=== PATIENT | female | born 1980 | race Caucasian/White ===

== ENCOUNTER 2019-08-24 04:16 | Observation (INO) | payer SELFPAY ==
--- NOTE | 2019-08-24 09:09 | ER Document Report ---
ED Extremity Problem, Lower - General Chief Complaint: Leg Pain Stated Complaint: LEG PAIN Time Seen by Provider: 08/24/19 08:46 Notes: Patient is a 39-year-old female who presents to the emergency department with chief complaint of bilateral leg swelling. Patient reports 4 days ago she developed bilateral leg swelling. Patient reports she does get swelling in both her legs prior to starting her period but has never been this significant. Patient reports significant leg pain. Patient denies redness or open wounds to her legs. Patient reports over the past 4 days she has been drinking a half a quart of moonshine daily. Patient reports she has been drinking this much due to the pain. Patient reports she does smoke cigarettes but does not do any recreational drug use or IV drug use. Patient denies fever, shortness of breath, chest pain. Patient reports she does take Suboxone due to addiction to opiates after receiving gastric bypass. Patient reports she has been out of her Suboxone for 4 days. Patient reports she has been taking ibuprofen for her discomfort which is not helping. Patient reports she is not supposed to take ibuprofen due to her gastric bypass. Patient reports she did take a 14-hour car ride 3 weeks ago as she came down here to help a family member move. Patient reports the swelling did not start until 4 days ago. TRAVEL OUTSIDE OF THE [place] IN LAST 30 DAYS: No - Related Data Allergies/Adverse Reactions: sulfamethoxazole [From Bactrim] Allergy (Verified 08/24/19 08:54) trimethoprim [From Bactrim] Allergy (Verified 08/24/19 08:54) Past Medical History - General Information source: Patient - Social History Smoking Status: Never Smoker Frequency of alcohol use: Heavy Drug Abuse: None Lives with: Spouse/Significant other Family History: None Patient has suicidal ideation: No Patient has homicidal ideation: No - Past Medical History Cardiac Medical History: Reports: None Pulmonary Medical History: Reports: None EENT Medical History: Reports: None Neurological Medical History: Reports: None Endocrine Medical History: Reports: None Renal/ Medical History: Reports: None Malignancy Medical History: Reports: None GI Medical History: Reports: Hx Gastritis, Hx Gastroesophageal Reflux Disease Musculoskeletal Medical History: Reports None Skin Medical History: Reports None Psychiatric Medical History: Reports: None Traumatic Medical History: Reports: None Infectious Medical History: Reports: None Past Surgical History: Reports: Hx Abdominal Surgery - gastric bypas Physical Exam - Vital signs Vitals: Temp Pulse Resp BP Pulse Ox 97.9 F 95 16 100/58 L 100 08/24/19 04:34 08/24/19 04:34 08/24/19 04:34 08/24/19 04:34 08/24/19 04:34 Interpretation: Normal - Notes Notes: GENERAL: Well-appearing, well-nourished and in no acute distress. HEAD: Atraumatic, normocephalic. EYES: Pupils equal round and reactive to light, extraocular movements intact, sclera anicteric, conjunctiva are normal. ENT: Nares patent, oropharynx clear without exudates. Moist mucous membranes. NECK: Normal range of motion, supple without lymphadenopathy or JVD. LUNGS: Breath sounds clear to auscultation bilaterally and equal. No wheezes rales or rhonchi. HEART: Regular rate and rhythm without murmurs, rubs or gallops. ABDOMEN: Soft, nontender, normoactive bowel sounds. No guarding, no rebound. No masses appreciated. BACK: No cervical, thoracic, lumbar midline tenderness. No saddle anesthesia, normal distal neurovascular exam. GENITOURINARY: Deferred. EXTREMITIES: Normal range of motion, + non pitting edema to bilateral lower extremities, there is no erythema, unilateral leg swelling, ecchymosis, rash NEUROLOGICAL: Cranial nerves II through XII grossly intact. Normal speech, normal gait. PSYCH: Normal mood, normal affect. SKIN: Warm, Dry, normal turgor, no rashes or lesions noted. Course - Re-evaluation Re-evalutation: 08/24/19 11:53 Upon reevaluation patient is resting comfortably on stretcher. Patient continues to complaint of severe bilateral leg pain. Patient's EKG just shows a sinus rhythm with a prolonged QT interval of 565. I have added on a magnesium level as well will give patient potassium as it was low at 2.9. Plan is to admit patient to the hospitalist service to the to the prolonged QT. I did make the patient aware of this. Patient verbalizes understanding and is in agreement to stay in the hospital. 08/24/19 12:03 Dr. Garcia with the hospital service to admit. - Vital Signs Vital signs: Temp Pulse Resp BP Pulse Ox 97.9 F 95 16 100/58 L 100 08/24/19 04:34 08/24/19 04:34 08/24/19 04:34 08/24/19 04:34 08/24/19 04:34 - Laboratory Result Diagrams: 08/24/19 10:00 08/24/19 10:00 Laboratory results interpreted by me: 08/24/19 08/24/19 08/24/19 10:00 10:00 10:45 WBC 3.7 L RDW 19.8 H Plt Count 139 L Lymph % (Auto) 50.0 H Absolute Neuts (auto) 1.4 L Seg Neutrophils % 38.1 L Potassium 2.9 L* BUN 5 L Creatinine 0.46 L Calcium 7.8 L AST 158 H Alkaline Phosphatase 289 H Total Protein 5.5 L Albumin 2.9 L Urine Protein 30 H Urine Blood LARGE H Urine Nitrite POSITIVE H Urine Urobilinogen 4.0 H Ur Leukocyte Esterase TRACE H Urine Ascorbic Acid 20 H - Diagnostic Test Radiology reviewed: Reports reviewed Radiology results interpreted by me: 08/24/19 12:28 Chest X-Ray 08/24/19 12:01 IMPRESSION: NO ACUTE RADIOGRAPHIC FINDING IN THE CHEST. - EKG Interpretation by Me Additional EKG results interpreted by me: 08/24/19 12:03 Patient's EKG shows a sinus rhythm with a prolonged QT interval. Patient's rate is 72, ME interval is 144, QT is 516 and QTc is 565. Patient does have a normal axis deviation. There is no ST segment changes in consecutive leads. No ST depression or elevation. Discharge - Discharge Clinical Impression: Hypokalemia, Prolonged QT interval, Lower extremity edema, Leg pain, bilateral Condition: Good Disposition: ADMITTED OBSERVATION Admitting Provider: Jose (Hospitalist) Unit Admitted: [facility]
[2019-08-24] MEDS ORDERED: ACETAMINOPHEN 325 MG TABLET PO ONE (09:11)
[2019-08-24 10:13] LABS: ABSOLUTE EOSINOPHILS # (AUTO) 0.1 10^3/uL (0.0-0.6); ABSOLUTE LYMPHOCYTES (AUTO) 1.9 10^3/uL (0.5-4.7); ABSOLUTE MONOCYTES (AUTO) 0.3 10^3/uL (0.1-1.4); ABSOLUTE NEUT (AUTO) 1.4 10^3/uL (1.7-8.2); BASOPHILS % (AUTO) 0.3 % (0-2); EOSINOPHILS % (AUTO) 2.5 % (0-6); HEMATOCRIT 36.2 % (36.0-47.0); HEMOGLOBIN 12.2 g/dL (12.0-15.5); MEAN CORPUSCULAR HGB CONC 33.7 g/dL (32.0-36.0); MEAN CORPUSCULAR VOLUME 95 fl (80-97); MONOCYTES % (AUTO) 9.1 % (3-13); PLATELET COUNT 139 10^3/uL (150-450); RED BLOOD COUNT 3.82 10^6/uL (3.72-5.28); RED CELL DISTRIBUTION WIDTH 19.8 % (11.5-14.0); SEGMENTED NEUTROPHILS % (AUTO) 38.1 % (42-78); TOTAL CELLS COUNTED % (AUTO) 100 %; WHITE BLOOD COUNT 3.7 10^3/uL (4.0-10.5)
[2019-08-24 10:38] LABS: ALBUMIN 2.9 g/dL (3.5-5.0); ALKALINE PHOSPHATASE 289 U/L (38-126); ANION GAP 8 (5-19); ASPARTATE AMINO TRANSFERASE 158 U/L (14-36); BILIRUBIN,DIRECT 0.2 mg/dL (0.0-0.4); BILIRUBIN,TOTAL 0.8 mg/dL (0.2-1.3); BLOOD UREA NITROGEN 5 mg/dL (7-20); CALCIUM 7.8 mg/dL (8.4-10.2); CARBON DIOXIDE 27 mmol/L (22-30); CHLORIDE 103 mmol/L (98-107); CREATINE KINASE 121 U/L (30-135); GLUCOSE 79 mg/dL (75-110); TOTAL PROTEIN 5.5 g/dL (6.3-8.2)
[2019-08-24 10:45] LABS: POTASSIUM 2.9 mmol/L (3.6-5.0)
[2019-08-24 10:57] LABS: AMORPHOUS SEDIMENT,URINE TRACE /HPF; APPEARANCE,URINE CLOUDY; BILIRUBIN,URINE NEGATIVE (NEGATIVE); COLOR,URINE AMBER; GLUCOSE, URINE NEGATIVE (NEGATIVE); KETONES,URINE NEGATIVE (NEGATIVE); LEUKOCYTE ESTERASE,URINE TRACE (NEGATIVE); NITRITE,URINE POSITIVE (NEGATIVE); PROTEIN,URINE 30 mg/dL (NEGATIVE); URINE SPECIFIC GRAVITY 1.013
[2019-08-24 11:18] LABS: URINE AMPHETAMINES SCREEN NEGATIVE; URINE BARBITURATES SCREEN NEGATIVE; URINE BENZODIAZEPINES SCREEN UNCONFIRMED POSITIVE; URINE COCAINE SCREEN NEGATIVE; URINE MARIJUANA (THC) SCREEN NEGATIVE; URINE METHADONE SCREEN NEGATIVE; URINE PHENCYCLIDINE SCREEN NEGATIVE
[2019-08-24] MEDS ORDERED: POTASSIUM CHLORIDE 10 MEQ CAPSULE.ER PO ONE ×3 (11:54→16:00)
[2019-08-24] MEDS: POTASSI CL 20 MEQ/50 ML RIDER 20 MEQ/50 ML RTUPB IV SCH ×2 (12:10→14:36)
--- NOTE | 2019-08-24 12:27 | RADIOLOGY REPORT (SQ) ---
EXAM DESCRIPTION: CHEST 2 VIEWS COMPLETED DATE/TIME: 08/24/2019 12:17 pm REASON FOR STUDY: bilateral leg edema COMPARISON: None. EXAM PARAMETERS: NUMBER OF VIEWS: two views TECHNIQUE: Digital Frontal and Lateral radiographic views of the chest acquired. RADIATION DOSE: NA LIMITATIONS: none FINDINGS: LUNGS AND PLEURA: No opacities, masses or pneumothorax. No pleural effusion. MEDIASTINUM AND HILAR STRUCTURES: No masses or contour abnormalities. HEART AND VASCULAR STRUCTURES: Heart normal size. No evidence for failure. BONES: No acute findings. HARDWARE: None in the chest. OTHER: No other significant finding. IMPRESSION: NO ACUTE RADIOGRAPHIC FINDING IN THE CHEST. TECHNICAL DOCUMENTATION: JOB ID: [id number] [employer]- All Rights Reserved Reading location - IP/workstation name: [email or web address]
[2019-08-24] MEDS ORDERED: KETOROLAC TROMETHAMINE INJ/PF 30 MG/1 ML SDV IV ONE (12:40)
[2019-08-24] MEDS ORDERED: MORPHINE SULFATE 10 MG/ML INJ IV PRN (13:03)
[2019-08-24] MEDS ORDERED: KETOROLAC TROMETHAMINE INJ/PF 30 MG/1 ML SDV IV PRN (13:04)
[2019-08-24] MEDS ORDERED: PROMETHAZINE HCL INJ 25 MG/1 ML VIAL IV PRN (13:05)
[2019-08-24] MEDS ORDERED: TEMAZEPAM 15 MG CAPSULE PO PRN (13:05)
[2019-08-24] MEDS ORDERED: IPRATROPIUM/ALBUTEROL 0.5-2.5 MG/3 ML AMPUL NEB PRN (13:05)
[2019-08-24] MEDS ORDERED: MAGNESIUM HYDROXIDE SUSP 30 ML UDCUP PO PRN (13:05)
[2019-08-24] MEDS ORDERED: BUPRENORPHINE HCL SL SCH (13:15)
[2019-08-24] MEDS ORDERED: [UNRECOGNIZED DRUG - OTHER] SL SCH (13:15)
[2019-08-24] MEDS ORDERED: NALOXONE HCL SL SCH (13:15)
[2019-08-24] MEDS: OXYCODONE-ACETAMINOPHEN 5-325 MG TABLET PO PRN (13:32)
--- NOTE | 2019-08-24 13:35 | PDOC H&P ---
History of Present Illness Admission Date/PCP: 08/24/19 12:23 History of Present Illness: ANEESH WALKER is a 39 year old female past medical history of morbid obesity status post gastric bypass x13 years, opiate addiction on Suboxone, EtOH and alcohol abuse presenting to ED complaining of bilateral lower extremity pain and swelling. Stating that she gets bilateral swollen legs before her period but never to this extent. She is new to [facility], 3 weeks ago she drove from [place] to [facility]. Bilateral lower extremity pain is started about 4 days ago, and has been drinking EtOH daily to control her pain, cant take ibuprofen because of history of gastic bypase. Ran out of Suboxane 4 days ago. She has been drinking half a quarter of moonshine daily with her male partner who is also on Suboxone. She reports low p.o. intake for the last several days. Denies any of CHF, CKD or liver disease, trauma, recent prolonged hospitalization, recent surgery, shortness of breath, chest pain, palpitation, history of previous DVT, fever, chills, nausea, vomiting, diarrhea, constipation or any urinary symptoms. ED she was found to have severe hypokalemia with QT prolongation on EKG, frequent bilateral lower extremity edema and pain. Hospitalist consulted for admission. Past Medical History Cardiac Medical History: Reports: None Pulmonary Medical History: Reports: None EENT Medical History: Reports: None Neurological Medical History: Reports: None Endocrine Medical History: Reports: None Renal/ Medical History: Reports: None Malignancy Medical History: Reports: None GI Medical History: Reports: Gastroesophageal Reflux Disease Musculoskeltal Medical History: Reports: None Skin Medical History: Reports: None Psychiatric Medical History: Reports: None Traumatic Medical History: Reports: None Infectious Medical History: Reports: None Social History Lives with: Spouse/Significant other Smoking Status: Never Smoker Family History Family History: None Parental Family History Reviewed: Yes Children Family History Reviewed: Yes Sibling(s) Family History Reviewed.: Yes Medication/Allergy Home Medications: Buprenorphine HCl/Naloxone HCl [Suboxone 2 mg-0.5 mg Sublingual Tablet] 1 tab SL BID 08/24/19 Allergies/Adverse Reactions: sulfamethoxazole [From Bactrim] Allergy (Verified 08/24/19 08:54) trimethoprim [From Bactrim] Allergy (Verified 08/24/19 08:54) Review of Systems Review of Systems: as per hpi Physical Exam Vital Signs: Temp Pulse Resp BP Pulse Ox 97.9 F 95 16 100/58 L 100 08/24/19 04:34 08/24/19 04:34 08/24/19 04:34 08/24/19 04:34 08/24/19 04:34 Intake & Output 08/23/19 08/24/19 08/25/19 06:59 06:59 06:59 Weight 61.4 kg General appearance: PRESENT: no acute distress, well-developed, well-nourished Head exam: PRESENT: atraumatic, normocephalic Respiratory exam: PRESENT: clear to auscultation soy. ABSENT: rales, rhonchi, wheezes Cardiovascular exam: PRESENT: RRR. ABSENT: diastolic murmur, rubs, systolic murmur GI/Abdominal exam: PRESENT: normal bowel sounds, soft. ABSENT: distended, guarding, mass, organolmegaly, rebound, tenderness Extremities exam: PRESENT: full ROM, tenderness, +2 edema. ABSENT: calf tende rness, clubbing, pedal edema Neurological exam: PRESENT: alert, awake, oriented to person, oriented to place, oriented to time, oriented to situation, CN II-XII grossly intact. ABSENT: motor sensory deficit Psychiatric exam: PRESENT: anxious Results Laboratory Results: 08/24/19 10:00 08/24/19 10:00 08/24/19 08/24/19 08/24/19 10:00 10:00 10:00 WBC 3.7 L RBC 3.82 Hgb 12.2 Hct 36.2 MCV 95 MCH 32.0 MCHC 33.7 RDW 19.8 H Plt Count 139 L Seg Neutrophils % 38.1 L Sodium 138.1 Potassium 2.9 L* Chloride 103 Carbon Dioxide 27 Anion Gap 8 BUN 5 L Creatinine 0.46 L Est GFR ( Amer) > 60 Glucose 79 Calcium 7.8 L Magnesium 2.2 Total Bilirubin 0.8 AST 158 H Alkaline Phosphatase 289 H Total Protein 5.5 L Albumin 2.9 L Urine Color Urine Appearance Urine pH Ur Specific [place] Urine Protein Urine Glucose (UA) Urine Ketones Urine Blood Urine Nitrite Ur Leukocyte Esterase Urine WBC (Auto) Urine RBC (Auto) 08/24/19 10:45 WBC RBC Hgb Hct MCV MCH MCHC RDW Plt Count Seg Neutrophils % Sodium Potassium Chloride Carbon Dioxide Anion Gap BUN Creatinine Est GFR ( Amer) Glucose Calcium Magnesium Total Bilirubin AST Alkaline Phosphatase Total Protein Albumin Urine Color AMY Urine Appearance CLOUDY Urine pH 5.0 Ur Specific [place] 1.013 Urine Protein 30 H Urine Glucose (UA) NEGATIVE Urine Ketones NEGATIVE Urine Blood LARGE H Urine Nitrite POSITIVE H Ur Leukocyte Esterase TRACE H Urine WBC (Auto) 36 Urine RBC (Auto) 17 08/24/19 08/24/19 10:00 10:00 Creatine Kinase 121 NT-Pro-B Natriuret Pep 58 Impressions: Chest X-Ray 08/24/19 12:01 IMPRESSION: NO ACUTE RADIOGRAPHIC FINDING IN THE CHEST. Assessment and Plan - Diagnosis (1) Hypokalemia Is this a current diagnosis for this admission?: Yes Plan: Likely due to p.o. intake. CK WNL. Anion gap WNL. Admit to IMCU. Hypokalemia protocol. (2) Lower extremity edema Is this a current diagnosis for this admission?: Yes Plan: Drove from [place] to [facility] 3 years ago, took 14 hours of driving. Denies any history of bilateral lower extremity trauma, recent immobilization, recent surgery. Denies any history of CHF, CKD or cirrhosis. proBNP WNL. Denies any shortness of breath, SPO2 WNL on RA. Heart rate WNL. Diuresis guided by volume status. Bilateral lower extremity venous Doppler to rule out DVT. (3) Opiate dependence Is this a current diagnosis for this admission?: Yes Plan: On Suboxone for the last 2 years. As per patient he developed opiate addiction after gastric bypass. Restart home meds. Monitor for withdrawal. Supportive measures. (4) ETOH abuse Is this a current diagnosis for this admission?: Yes Plan: History of binge drinking. Has been using moonshine lately. Admit to telemetry. EtOH withdrawal measures. Folic acid, thiamine, benzos. Monitor for seizures. (5) Tobacco abuse Is this a current diagnosis for this admission?: Yes Plan: Counseled on quitting. NicoDerm patch. (6) UTI (urinary tract infection) Is this a current diagnosis for this admission?: Yes Plan: Likely due to gram-negative processes E. coli. IV ceftriaxone. Avoid quinolones due to QT prolongation.
[2019-08-24] MEDS ORDERED: LEVOFLOXACIN 500 MG/D5W RTU 500 MG/100 ML RTUPB IV SCH (15:00)
[2019-08-24] MEDS: NICOTINE 14 MG/24 HR PATCH.TD24 TD PRN (15:51)
[2019-08-24] MEDS: ENOXAPARIN SODIUM INJ 40 MG/0.4 ML DISP.SYRIN SUBCUT SCH (15:51)
[2019-08-24] MEDS: DIAZEPAM INJ 10 MG/2 ML DISP.SYRIN IV PRN (15:51)
[2019-08-24] MEDS ORDERED: FOLIC ACID/VITAMIN B COMP W-C CAPSULE PO SCH (16:00)
[2019-08-24] MEDS: BUPRENORPHINE HCL 2 MG SUBLINGUAL TABLET SL SCH (16:51)
[2019-08-24] MEDS: PANTOPRAZOLE SODIUM 40 MG TABLET.DR PO SCH (16:51)
[2019-08-24] MEDS: CEFTRIAXONE 1 GM/D5W RTU 1 GM/50 ML RTUPB IV SCH (16:52)
[2019-08-24] MEDS: LORAZEPAM INJ 2 MG/1 ML VIAL IV PRN ×2 (18:33→21:21)
[2019-08-24 18:51] LABS: ANION GAP 7 (5-19); BLOOD UREA NITROGEN 4 mg/dL (7-20); CALCIUM 7.8 mg/dL (8.4-10.2); CARBON DIOXIDE 25 mmol/L (22-30); CHLORIDE 104 mmol/L (98-107); GLUCOSE 88 mg/dL (75-110)
[2019-08-24] MEDS: MORPHINE SULFATE 10 MG/ML INJ IV PRN ×2 (18:58→21:53)
[2019-08-24 19:02] LABS: POTASSIUM 4.5 mmol/L (3.6-5.0)
[2019-08-25] MEDS: MORPHINE SULFATE 10 MG/ML INJ IV PRN ×4 (00:36→14:12)
[2019-08-25] MEDS: LORAZEPAM INJ 2 MG/1 ML VIAL IV PRN ×3 (00:37→13:39)
--- NOTE | 2019-08-25 00:52 | EKG REPORT ---
SEVERITY:- ABNORMAL ECG - SINUS RHYTHM PROLONGED QT INTERVAL : Confirmed by: Estela Wiseman 25-Aug-2019 00:52:01
[2019-08-25 02:36] LABS: HEMATOCRIT 34.9 % (36.0-47.0); HEMOGLOBIN 11.7 g/dL (12.0-15.5); MEAN CORPUSCULAR HEMOGLOBIN 31.8 pg (27.0-33.4); MEAN CORPUSCULAR HGB CONC 33.5 g/dL (32.0-36.0); MEAN CORPUSCULAR VOLUME 95 fl (80-97); PLATELET COUNT 105 10^3/uL (150-450); RED BLOOD COUNT 3.67 10^6/uL (3.72-5.28); WHITE BLOOD COUNT 3.3 10^3/uL (4.0-10.5)
[2019-08-25 03:08] LABS: POTASSIUM 4.3 mmol/L (3.6-5.0)
[2019-08-25] MEDS: PANTOPRAZOLE SODIUM 40 MG TABLET.DR PO SCH (05:17)
[2019-08-25] MEDS: DIAZEPAM INJ 10 MG/2 ML DISP.SYRIN IV PRN (08:30)
[2019-08-25] MEDS: OXYCODONE-ACETAMINOPHEN 5-325 MG TABLET PO PRN (08:31)
[2019-08-25] MEDS: ENOXAPARIN SODIUM INJ 40 MG/0.4 ML DISP.SYRIN SUBCUT SCH (10:35)
[2019-08-25] MEDS: BUPRENORPHINE HCL 2 MG SUBLINGUAL TABLET SL SCH (10:35)
[2019-08-25] MEDS: CEFTRIAXONE 1 GM/D5W RTU 1 GM/50 ML RTUPB IV SCH (10:35)
[2019-08-25] MEDS: NICOTINE 14 MG/24 HR PATCH.TD24 TD PRN (10:35)
--- NOTE | 2019-08-25 12:04 | PDOC PROGRESS REPORT ---
Subjective Progress Note for:: 08/25/19 Subjective:: ANEESH WALKER is a 39 year old female past medical history of morbid obesity status post gastric bypass x13 years, opiate addiction on Suboxone, EtOH and alcohol abuse presenting to ED complaining of bilateral lower extremity pain and swelling. Stating that she gets bilateral swollen legs before her period but never to this extent. She is new to [facility], 3 weeks ago she drove from [place] to [facility]. Bilateral lower extremity pain is started about 4 days ago, and has been drinking EtOH daily to control her pain, cant take ibuprofen because of history of gastic bypase. Ran out of Suboxane 4 days ago. She has been drinking half a quarter of moonshine daily with her male partner who is also on Suboxone. She reports low p.o. intake for the last several days. Denies any of CHF, CKD or liver disease, trauma, recent prolonged hospitalization, recent surgery, shortness of breath, chest pain, palpitation, history of previous DVT, fever, chills, nausea, vomiting, diarrhea, constipation or any urinary symptoms. ED she was found to have severe hypokalemia with QT prolongation on EKG, frequent bilateral lower extremity edema and pain. Hospitalist consulted for admission. 08/25/2019. No acute events overnight. Patient still complaining of bilateral lower extremity pain, no complaints, denies any fever, chills, nausea, vomiting, diarrhea, constipation or any urinary symptoms. Reason For Visit: HYPOKALEMIA,BLE EDEMA Physical Exam Vital Signs: Temp Pulse Resp BP Pulse Ox 98 F 89 17 109/82 96 08/25/19 10:28 08/25/19 10:28 08/25/19 10:28 08/25/19 10:28 08/25/19 10:28 Intake & Output 08/24/19 08/25/19 08/26/19 06:59 06:59 06:59 Intake Total 750 50 Balance 750 50 Weight 61.4 kg 62 kg General appearance: PRESENT: no acute distress, well-developed, well-nourished Head exam: PRESENT: atraumatic, normocephalic Neck exam: ABSENT: carotid bruit, JVD, lymphadenopathy, thyromegaly Respiratory exam: PRESENT: clear to auscultation soy. ABSENT: rales, rhonchi, wheezes Cardiovascular exam: PRESENT: RRR. ABSENT: diastolic murmur, rubs, systolic murmur Vascular exam: PRESENT: normal capillary refill Extremities exam: PRESENT: +2 edema Neurological exam: PRESENT: alert, awake, oriented to person, oriented to place, oriented to time, oriented to situation, CN II-XII grossly intact. ABSENT: motor sensory deficit Results Laboratory Results: 08/25/19 02:25 08/25/19 10:59 08/24/19 08/25/19 08/25/19 18:08 02:25 02:25 WBC 3.3 L RBC 3.67 L Hgb 11.7 L Hct 34.9 L MCV 95 MCH 31.8 MCHC 33.5 RDW 20.0 H Plt Count 105 L Sodium 135.6 L Potassium 4.5 D 4.3 Chloride 104 Carbon Dioxide 25 Anion Gap 7 BUN 4 L Creatinine 0.42 L Est GFR ( Amer) > 60 Glucose 88 Calcium 7.8 L Magnesium 2.1 08/25/19 10:59 WBC RBC Hgb Hct MCV MCH MCHC RDW Plt Count Sodium Potassium 4.3 Chloride Carbon Dioxide Anion Gap BUN Creatinine Est GFR ( Amer) Glucose Calcium Magnesium 08/24/19 08/24/19 10:00 10:00 Creatine Kinase 121 NT-Pro-B Natriuret Pep 58 Impressions: Chest X-Ray 08/24/19 12:01 IMPRESSION: NO ACUTE RADIOGRAPHIC FINDING IN THE CHEST. Assessment and Plan - Diagnosis (1) UTI (urinary tract infection) Is this a current diagnosis for this admission?: Yes Plan: Likely due to gram-negative processes E. coli. Urine culture positive for gram-negative rods. Day 2 IV antibiotics. Day 2 IV ceftriaxone. Switch to p.o. once appropriate. Continue empiric IV antibiotics, follow-up cultures. Avoid quinolones due to QT prolongation. (2) Hypokalemia Is this a current diagnosis for this admission?: Yes Plan: Likely due to p.o. intake. Resolved. CK WNL. Anion gap WNL. Potassium level tomorrow. (3) Lower extremity edema Is this a current diagnosis for this admission?: Yes Plan: Drove from [place] to [facility] 3 years ago, took 14 hours of driving. Denies any history of bilateral lower extremity trauma, recent immobilization, recent surgery. Denies any history of CHF, CKD or cirrhosis. proBNP WNL. Denies any shortness of breath, SPO2 WNL on RA. Heart rate WNL. Diuresis guided by volume status. Bilateral lower extremity venous Doppler pending results. (4) Opiate dependence Is this a current diagnosis for this admission?: Yes Plan: On Suboxone for the last 2 years. As per patient he developed opiate addiction after gastric bypass. Restart home meds. Monitor for withdrawal. Supportive measures. (5) ETOH abuse Is this a current diagnosis for this admission?: Yes Plan: History of binge drinking. Has been using moonshine lately. Admit to telemetry. EtOH withdrawal measures. Folic acid, thiamine, benzos. Monitor for seizures. (6) Tobacco abuse Is this a current diagnosis for this admission?: Yes Plan: Counseled on quitting. NicoDerm patch. (7) Thrombocytopenia Is this a current diagnosis for this admission?: Yes Plan: Monitor for bleeding. CMP tomorrow. If does not resolve we will consult oncology.
--- NOTE | 2019-08-25 12:52 | RADIOLOGY REPORT (SQ) ---
EXAM DESCRIPTION: VENOUS BILATERAL LOWER COMPLETED DATE/TIME: 08/25/2019 12:10 pm REASON FOR STUDY: BLE edema COMPARISON: None. TECHNIQUE: Dynamic and static lowry scale and color images acquired of both lower extremity venous sy stems. Selected spectral images acquired with additional compression and augmentation maneuvers. Imag es stored on PACS. LIMITATIONS: None. FINDINGS: RIGHT LEG COMMON FEMORAL AND FEMORAL: Normal phasicity, compression and augmentation. No visualized echogenic m aterial on lowry scale. No defects on color images. POPLITEAL: Normal compression and augmentation. No visualized echogenic material on lowry scale. No de fects on color images. CALF VESSELS: Normal compression and augmentation. No visualized echogenic material on lowry scale. No defects on color image. GSV AND SSV: Normal compression. No visualized echogenic material on lowry scale. No defects on color images. ANY DEEP VENOUS INSUFFICIENCY: Not evaluated. ANY EVIDENCE OF POPLITEAL CYST: No. OTHER: No other significant finding. LEFT LEG COMMON FEMORAL AND FEMORAL: Normal phasicity, compression and augmentation. No visualized echogenic m aterial on lowry scale. No defects on color images. POPLITEAL: Normal compression and augmentation. No visualized echogenic material on lowry scale. No de fects on color images. CALF VESSELS: Normal compression and augmentation. No visualized echogenic material on lowry scale. No defects on color images. GSV AND SSV: Normal compression. No visualized echogenic material on lowry scale. No defects on color images. ANY DEEP VENOUS INSUFFICIENCY: Not evaluated. ANY EVIDENCE POPLITEAL CYST: No. OTHER: No other significant finding. IMPRESSION: NO EVIDENCE DVT OR SVT IN EITHER LEG. TECHNICAL DOCUMENTATION: JOB ID: [id number] [employer]- All Rights Reserved Reading location - IP/workstation name: [email or web address]
[2019-08-25 14:26] VITALS: BP 100/58
[2019-08-25] MEDS ORDERED: TRAMADOL HCL 50 MG TABLET PO ONE (15:00)
--- NOTE | 2019-08-25 16:21 | PDOC DISCHARGE SUMMARY ---
Impression - Admit/DC Date/PCP Admission Date/Primary Care Provider: 08/24/19 12:23 Discharge Date: 08/25/19 - Discharge Diagnosis (1) UTI (urinary tract infection) Is this a current diagnosis for this admission?: Yes (2) Hypokalemia Is this a current diagnosis for this admission?: Yes (3) Lower extremity edema Is this a current diagnosis for this admission?: Yes (4) Opiate dependence Is this a current diagnosis for this admission?: Yes (5) ETOH abuse Is this a current diagnosis for this admission?: Yes (6) Tobacco abuse Is this a current diagnosis for this admission?: Yes (7) Thrombocytopenia Is this a current diagnosis for this admission?: Yes - Additional Information Discharge Diet: As Tolerated Discharge Activity: Activity As Tolerated Prescriptions: Cephalexin Monohydrate [Keflex 500 mg Capsule] 500 mg PO BID #8 capsule Home Medications: Buprenorphine HCl/Naloxone HCl [Buprenorphin-Naloxon 8-2 mg Sl] 2.5 tab SL DAILY 08/24/19 Clonazepam [Klonopin 1 mg Tablet] 1 mg PO BID 08/24/19 Cephalexin Monohydrate [Keflex 500 mg Capsule] 500 mg PO BID #8 capsule 08/25/19 History of Present Illiness History of Present Illness: ANEESH WALKER is a 39 year old female past medical history of morbid obesity status post gastric bypass x13 years, opiate addiction on Suboxone, EtOH and alcohol abuse presenting to ED complaining of bilateral lower extremity pain and swelling. Stating that she gets bilateral swollen legs before her period but never to this extent. She is new to [facility], 3 weeks ago she drove from [place] to [facility]. Bilateral lower extremity pain is started about 4 days ago, and has been drinking EtOH daily to control her pain, cant take ibuprofen because of history of gastic bypase. Ran out of Suboxane 4 days ago. She has been drinking half a quarter of moonshine daily with her male partner who is also on Suboxone. She reports low p.o. intake for the last several days. Denies any of CHF, CKD or liver disease, trauma, recent prolonged hospitalization, recent surgery, shortness of breath, chest pain, palpitation, history of previous DVT, fever, chills, nausea, vomiting, diarrhea, constipation or any urinary symptoms. ED she was found to have severe hypokalemia with QT prolongation on EKG, frequent bilateral lower extremity edema and pain. Hospitalist consulted for admission. Hospital Course Hospital Course: (1) UTI (urinary tract infection) Likely due to gram-negative processes E. coli. Urine culture positive for gram-negative rods. Received 2 days IV antibiotics. Received 2 days of IV ceftriaxone. Was switched to Keflex 500 p.o. twice daily for another 5 days upon discharge. Avoided quinolones due to QT prolongation. Will follow urine culture. (2) Hypokalemia Likely due to p.o. intake. Resolved. CK WNL. Anion gap WNL. (3) Lower extremity edema Stating that she gets lower extremity edema when she is on her period, however this time it was worse than before. Drove from [place] to [facility] 3 years ago, took 14 hours of driving. Denied any history of bilateral lower extremity trauma, recent immobilization, recent surgery. Denied any history of CHF, CKD or cirrhosis. proBNP WNL. Denied any shortness of breath, SPO2 WNL on RA. Heart rate WNL. Bilateral lower extremity venous Doppler negative for DVT. Patient was placed on DVT prophylaxis, lower extremity elevation, and compression stockings. (4) Opiate dependence On Suboxone for the last 2 years. As per patient he developed opiate addiction after gastric bypass. Patient on Suboxone unfortunately we do not carry Suboxone patient instead was provided with Subutex. Monitor for withdrawal. Provided supportive measures. Patient lives in [place] was visiting [place], planning to go back to [place] after being discharged from the hospital. She will be driving back to [place] with the family, stated that she will not be the one who will be driving. Cautioned against driving. (5) ETOH abuse Did not have any withdrawal symptoms. Admitted to telemetry, implemented EtOH withdrawal measures. (6) Tobacco abuse Counseled on quitting. NicoDerm patch. (7) Thrombocytopenia Monitored for bleeding. Advised on outpatient PCP and Hematology follow-up. Physical Exam Vital Signs: Temp Pulse Resp BP Pulse Ox 98 F 89 17 100/58 L 96 08/25/19 14:17 08/25/19 14:17 08/25/19 14:17 08/25/19 14:17 08/25/19 14:17 Intake & Output 08/24/19 08/25/19 08/26/19 06:59 06:59 06:59 Intake Total 750 50 Balance 750 50 Weight 61.4 kg 62 kg General appearance: PRESENT: no acute distress, well-developed, well-nourished Extremities exam: PRESENT: +1 edema Psychiatric exam: PRESENT: anxious Results Laboratory Results: WBC 3.3 10^3/uL (4.0-10.5) L 08/25/19 02:25 RBC 3.67 10^6/uL (3.72-5.28) L 08/25/19 02:25 Hgb 11.7 g/dL (12.0-15.5) L 08/25/19 02:25 Hct 34.9 % (36.0-47.0) L 08/25/19 02:25 MCV 95 fl (80-97) 08/25/19 02:25 MCH 31.8 pg (27.0-33.4) 08/25/19 02:25 MCHC 33.5 g/dL (32.0-36.0) 08/25/19 02:25 RDW 20.0 % (11.5-14.0) H 08/25/19 02:25 Plt Count 105 10^3/uL (150-450) L 08/25/19 02:25 Lymph % (Auto) 50.0 % (13-45) H 08/24/19 10:00 Mcduffie % (Auto) 9.1 % (3-13) 08/24/19 10:00 Eos % (Auto) 2.5 % (0-6) 08/24/19 10:00 Baso % (Auto) 0.3 % (0-2) 08/24/19 10:00 Absolute Neuts (auto) 1.4 10^3/uL (1.7-8.2) L 08/24/19 10:00 Absolute Lymphs (auto) 1.9 10^3/uL (0.5-4.7) 08/24/19 10:00 Absolute Monos (auto) 0.3 10^3/uL (0.1-1.4) 08/24/19 10:00 Absolute Eos (auto) 0.1 10^3/uL (0.0-0.6) 08/24/19 10:00 Absolute Basos (auto) 0.0 10^3/uL (0.0-0.2) 08/24/19 10:00 Seg Neutrophils % 38.1 % (42-78) L 08/24/19 10:00 Sodium 135.6 mmol/L (137-145) L 08/24/19 18:08 Potassium 4.3 mmol/L (3.6-5.0) 08/25/19 10:59 Chloride 104 mmol/L (98-107) 08/24/19 18:08 Carbon Dioxide 25 mmol/L (22-30) 08/24/19 18:08 Anion Gap 7 (5-19) 08/24/19 18:08 BUN 4 mg/dL (7-20) L 08/24/19 18:08 Creatinine 0.42 mg/dL (0.52-1.25) L 08/24/19 18:08 Est GFR ( Amer) > 60 (>60) 08/24/19 18:08 Est GFR (MDRD) Non-Af > 60 (>60) 08/24/19 18:08 Glucose 88 mg/dL (75-110) 08/24/19 18:08 Calcium 7.8 mg/dL (8.4-10.2) L 08/24/19 18:08 Magnesium 2.1 mg/dL (1.6-2.3) 08/25/19 02:25 Total Bilirubin 0.8 mg/dL (0.2-1.3) 08/24/19 10:00 Direct Bilirubin 0.2 mg/dL (0.0-0.4) 08/24/19 10:00 Neonat Total Bilirubin Not Reportable 08/24/19 10:00 Neonat Direct Bilirubin Not Reportable 08/24/19 10:00 Neonat Indirect Bili Not Reportable 08/24/19 10:00 AST 158 U/L (14-36) H 08/24/19 10:00 ALT 69 U/L (<35) 08/24/19 10:00 Alkaline Phosphatase 289 U/L (38-126) H 08/24/19 10:00 Creatine Kinase 121 U/L (30-135) 08/24/19 10:00 NT-Pro-B Natriuret Pep 58 pg/mL (<125) 08/24/19 10:00 Total Protein 5.5 g/dL (6.3-8.2) L 08/24/19 10:00 Albumin 2.9 g/dL (3.5-5.0) L 08/24/19 10:00 Urine Color AMY 08/24/19 10:45 Urine Appearance CLOUDY 08/24/19 10:45 Urine pH 5.0 (5.0-9.0) 08/24/19 10:45 Ur Specific [place] 1.013 08/24/19 10:45 Urine Protein 30 mg/dL (NEGATIVE) H 08/24/19 10:45 Urine Glucose (UA) NEGATIVE mg/dL (NEGATIVE) 08/24/19 10:45 Urine Ketones NEGATIVE mg/dL (NEGATIVE) 08/24/19 10:45 Urine Blood LARGE (NEGATIVE) H 08/24/19 10:45 Urine Nitrite POSITIVE (NEGATIVE) H 08/24/19 10:45 Urine Bilirubin NEGATIVE (NEGATIVE) 08/24/19 10:45 Urine Urobilinogen 4.0 mg/dL (<2.0) H 08/24/19 10:45 Ur Leukocyte Esterase TRACE (NEGATIVE) H 08/24/19 10:45 Urine WBC (Auto) 36 /HPF 08/24/19 10:45 Urine RBC (Auto) 17 /HPF 08/24/19 10:45 Urine Bacteria (Auto) 3+ /HPF 08/24/19 10:45 Squamous Epi Cells Auto 37 /HPF 08/24/19 10:45 Amorphous Sediment Auto TRACE /HPF 08/24/19 10:45 Urine Mucus (Auto) MOD /LPF 08/24/19 10:45 Urine Ascorbic Acid 20 (NEGATIVE) H 08/24/19 10:45 Urine HCG, Qual NEGATIVE (NEGATIVE) 08/24/19 10:45 Urine Opiates Screen NEGATIVE 08/24/19 10:45 Urine Methadone Screen NEGATIVE 08/24/19 10:45 Ur Barbiturates Screen NEGATIVE 08/24/19 10:45 Ur Phencyclidine Scrn NEGATIVE 08/24/19 10:45 Ur Amphetamines Screen NEGATIVE 08/24/19 10:45 U Benzodiazepines Scrn UNCONFIRMED POSITIVE 08/24/19 10:45 Urine Cocaine Screen NEGATIVE 08/24/19 10:45 U Marijuana (THC) Screen NEGATIVE 08/24/19 10:45 Serum Alcohol 120 mg/dL (NONE DETECTED) 08/24/19 10:00 08/24/19 10:00 NT-Pro-B Natriuret Pep 58 Impressions: Chest X-Ray 08/24/19 12:01 IMPRESSION: NO ACUTE RADIOGRAPHIC FINDING IN THE CHEST. Venous Doppler Study 08/25/19 00:00 IMPRESSION: NO EVIDENCE DVT OR SVT IN EITHER LEG. Plan Goals: is passing through to [place]. She will follow-up with her PCP when she gets home. Stroke Is this a Stroke Patient?: No Acute Heart Failure - Is this a Heart Failure Patient?: No
--- NOTE | 2019-08-26 00:30 | EKG REPORT ---
SEVERITY:- BORDERLINE ECG - SINUS RHYTHM BORDERLINE R WAVE PROGRESSION, ANTERIOR LEADS BORDERLINE PROLONGED QT INTERVAL : Confirmed by: Sneha Hudson MD 26-Aug-2019 00:28:54
== END 2019-08-25 14:47 | disposition home or self-care (01) ==
LOC: ER 04:16 → EH 12:23 → 3W 15:29
PROVIDERS: ADMIT Internal Medicine; ATTEND Internal Medicine
DX: R60.0 Localized edema (principal); E87.6 Hypokalemia; N39.0 Urinary tract infection, site not specified; F11.20 Opioid dependence, uncomplicated; F10.10 Alcohol abuse, uncomplicated; D69.6 Thrombocytopenia, unspecified; M79.605 Pain in left leg; M79.604 Pain in right leg; F17.210 Nicotine dependence, cigarettes, uncomplicated; I45.81 Long QT syndrome; Z79.899 Other long term (current) drug therapy; Z98.84 Bariatric surgery status
CPT/HCPCS: 99285; 96375; 96365; 96366; 36415 ×2; 87040; 87086; 80307 ×2; 82550; 83735 ×2; 84132; 85025; 85027; 81025; 87088; 80053; 81001; 87186; 83880; 93970; 71046; 93005 ×2; 93010 ×2; G0378 ×3; J3360 ×2; J1885; J2270 ×2; J1650; J2060 ×2; J3480; J0696 ×2; J0571 ×2; J3490 ×2